=== PATIENT | female | born 1990 | race Asian ===

== ENCOUNTER 2017-04-11 04:52 | Emergency (ER) | payer SELFPAY ==
[~2017-04-11] VITALS: Ht 152.4 cm; Wt 52.3 kg
[2017-04-11 05:02] VITALS: BP 138/76
[2017-04-11] MEDS ORDERED: IBUPROFEN 800 MG TAB PO ONE (05:45)
== END 2017-04-11 05:51 | disposition home or self-care (01) ==
LOC: EDBD 04:52 → M ED 04:52
DX: N20.1 Calculus of ureter (principal)